=== PATIENT | male | born 1990 | race Caucasian/White ===

== ENCOUNTER 2025-05-23 08:34 | Emergency (ER) | payer OTHER ==
[~2025-05-23] VITALS: Ht 185.4 cm; Wt 86.1 kg
[2025-05-23] MEDS ORDERED: CIPR0.3S67 OP (09:24)
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
[2025-05-23 09:49] VITALS: BP 133/88; PULSE 86; RESP 18; TEMP 97.9; O2SAT 97
== END 2025-05-23 09:51 | disposition home or self-care (01) ==
LOC: ER 08:34
DX: T15.01XA Foreign body in cornea, right eye, initial encounter (principal); W44.9XXA Unspecified foreign body entering into or through a natural orifice, initial encounter; Y93.89 Activity, other specified; Y92.89 Other specified places as the place of occurrence of the external cause; Y99.8 Other external cause status
CPT/HCPCS: 65220